=== PATIENT | female | born 1990 | race Caucasian/White ===

== ENCOUNTER → 2017-05-04 | Outpatient (CLI) | payer SELFPAY ==
--- NOTE | 2017-05-09 10:33 | RADIOLOGY REPORT (SQ) ---
EXAM DESCRIPTION: U/S ME8ROLE TRNABD 1GES W/ODOP COMPLETED DATE/TIME: 05/04/2017 1:47 pm REASON FOR STUDY: ENCOUNTER FOR SUPERVISON OF NORMAL FIRST , FIRST TRIMESTER Z34.01 ENCNTR FOR SUPRVSN OF NORMAL FIRST PREG, FIRST TRIMES COMPARISON: None. TECHNIQUE: Transabdominal static and realtime grayscale images acquired of the pelvis. Additional se lected spectral and color Doppler images recorded. All images stored on PACs. bHCG: Not available. LIMITATIONS: Over distended urinary bladder FINDINGS: FETUS: Living intrauterine . EGA: 8 weeks 2 days CYNDI: 12/12/2017 FHR: 149 beats per minute. SUBCHORIONIC BLEED: No SIZE OF BLEED: Not applicable. UTERUS: No masses. No anomalies. Uterus is 11 x 5 x 4 cm in size CERVICAL LENGTH: 2.9 cm Closed. RIGHT ADNEXA: Not visualized due to adnexal bowel gas. LEFT ADNEXA: Not visualized due to adnexal bowel gas FREE FLUID: None. OTHER: No other significant finding. IMPRESSION: LIVING INTRAUTERINE . EGA 8 weeks 2 days Maternal adnexum not visualized due to bowel gas. Trimester of : First - 0 to 13 weeks. TECHNICAL DOCUMENTATION: JOB ID: [id number] [employer] All Rights Reserved
== END ==
LOC: RAD 12:41
PROVIDERS: ATTEND Nurse Practitioner Women's Health
DX: Z34.01 Encounter for supervision of normal first pregnancy, first trimester (principal)
CPT/HCPCS: 76801

== ENCOUNTER → 2017-07-31 | Outpatient (CLI) | payer BC ==
--- NOTE | 2017-07-31 15:01 | RADIOLOGY REPORT (SQ) ---
EXAM DESCRIPTION: U/S OB 14+ TRNABD 1GES W/O DOP COMPLETED DATE/TIME: 07/31/2017 2:11 pm REASON FOR STUDY: ENCOUNTER FOR SUPERVISION OF NORMAL FIRST , 2ND TRIMESTER (Z34.02) Z34.02 ENCNTR FOR SUPRVSN OF NORMAL FIRST PREG, SECOND TRIME COMPARISON: None. TECHNIQUE: Static and Dynamic grayscale imaging performed of gravid uterus using transabdominal appr oach. Additional selected color Doppler and spectral images recorded. All stored on PACS. LIMITATIONS: None. FINDINGS: EGA: 21 weeks 5 days CYNDI: 12/06/2017 EFW: 422 Grams PERCENTILE: Not available. JARRET: 4.4 PLACENTA: Posterior. GRADE: I PRESENTATION: Cephalic. ANATOMY: HEART RATE: 145 beats per minute. FOUR CHAMBER HEART: Visualized. THREE VESSEL CORD: Yes. CORD INSERTION: Visualized. KIDNEYS AND BLADDER: Visualized. Appear normal. STOMACH: Visualized. Appears normal. SPINE: Normal as visualized. BRAIN AND LATERAL VENTRICLES: Visualized. Appear normal. OTHER: No other significant finding. MATERNAL ADNEXA: Maternal ovaries not visualized. CERVICAL LENGTH: 2.6 cm Closed. OTHER: No other significant finding. IMPRESSION: LIVING INTRAUTERINE . ESTIMATED GESTATIONAL AGE 21 weeks 5 days NO VISUALIZED ANOMALIES. Trimester of : Second trimester - 13 weeks 1 day to 27 weeks 6 days. TECHNICAL DOCUMENTATION: JOB ID: [id number] [employer]- All Rights Reserved
== END ==
LOC: RAD 12:33
PROVIDERS: ATTEND Nurse Practitioner Women's Health
DX: Z34.02 Encounter for supervision of normal first pregnancy, second trimester (principal)
CPT/HCPCS: 76805

== ENCOUNTER 2017-12-04 21:24 | Inpatient (IN) | payer BC ==
[2017-12-04 22:08] LABS: HEMATOCRIT 35.4 % (36.0-47.0); HEMOGLOBIN 11.8 g/dL (12.0-15.5); MEAN CORPUSCULAR HEMOGLOBIN 27.8 pg (27.0-33.4); MEAN CORPUSCULAR HGB CONC 33.3 g/dL (32.0-36.0); MEAN CORPUSCULAR VOLUME 83 fl (80-97); PLATELET COUNT 349 10^3/uL (150-450); RED BLOOD COUNT 4.24 10^6/uL (3.72-5.28); RED CELL DISTRIBUTION WIDTH 14.1 % (11.5-14.0); WHITE BLOOD COUNT 14.2 10^3/uL (4.0-10.5)
[2017-12-04 22:17] LABS: APPEARANCE,URINE CLEAR; BILIRUBIN,URINE NEGATIVE (NEGATIVE); COLOR,URINE YELLOW; GLUCOSE, URINE NEGATIVE (NEGATIVE); KETONES,URINE NEGATIVE (NEGATIVE); LEUKOCYTE ESTERASE,URINE NEGATIVE (NEGATIVE); NITRITE,URINE NEGATIVE (NEGATIVE); PROTEIN,URINE NEGATIVE (NEGATIVE); URINE SPECIFIC GRAVITY 1.012; UROBILINOGEN,URINE NEGATIVE mg/dL (<2.0)
[2017-12-04 22:38] LABS: URINE AMPHETAMINES SCREEN NEGATIVE; URINE BARBITURATES SCREEN NEGATIVE; URINE BENZODIAZEPINES SCREEN NEGATIVE; URINE COCAINE SCREEN NEGATIVE; URINE MARIJUANA (THC) SCREEN NEGATIVE; URINE METHADONE SCREEN NEGATIVE; URINE PHENCYCLIDINE SCREEN NEGATIVE
[2017-12-04] MEDS ORDERED: DINOPROSTONE 10 MG VAGINAL INSERT.SR ONE (22:42)
--- NOTE | 2017-12-05 03:49 | Admission Physical ---
Datetime Report Generated by CPN: 12/05/2017 03:49 CURRENT ADMISSION Chief Complaint: Scheduled Induction of Labor Indication for Induction: Polyhydramnios Admit Impression : Term, Intrauterine ; Induction of Labor Admit Plan: Admit to Unit; Initiate Labor Induction Protocol ALLERGIES Medication Allergies: No Medication Allergies: No Known Allergies (12/04/2017) Latex: No Latex Allergies Food Allergies: none Environmental Allergies: none OBSTETRICAL HISTORY EDC: 12/12/2017 00:00 : 1 Para: 0 Term: 0 : 0 SAB: 0 IAB: 0 Ectopic: 0 Livin Cesareans: 0 VBACs: 0 Multiple Births: 0 Gestational Diabetes: No Rh Sensitization: No Incompetent Cervix: No HOOD: No Infertility: No ART Treatment: No Uterine Anomaly: No IUGR: No Hx Previous C/S: No Macrosomia: No Hx Loss/Stillborn: No PIH: No Hx : No Placenta Previa/Abruption: No Depression/PP Depression: No PTL/PROM: No Post Hemorrhage: No Current Procedures: Ultrasound; NST Obstetrical History Comments: G1-present edc 12/12/17 SEE RECORDS Alcohol: No Marijuana : No Cocaine: No Other Illicit Drugs: No Cigarettes: Never Smoker. [id number] MEDICAL HISTORY Diabetes: No Blood Transfusion: No Pulmonary Disease (Asthma, TB): No Breast Disease: No Hypertension: No Skein Bander Surgery: No Heart Disease: No Hosp/Surgery: No Autoimmune Disorder: No Anesthetic Complications: No Kidney Disease: No Abnormal Pap Smear: Yes Neuro/Epilepsy: No Psychiatric Disorders: Yes Other Medical Diseases: No Hepatitis/Liver Disease: No Significant Family History: No Varicosities/Phlebitis: No Trauma/Violence : No Thyroid Dysfunction: No Medical History Comments: PSYCHIATRIC-ANXIETY TAKES ZOLOFT, VISTARIL PRN, ABNORMAL PAP-ASCUS WILL DO COLP AFTER INFECTIOUS HISTORY Gonorrhea: No Genital Herpes: No Chlamydia: No Tuberculosis: No Syphilis: No Hepatitis: No HIV/AIDS Exposure: No Rash or Viral Illness: No HPV: Yes Infectious History Comments: plan for colp after PHYSICAL EXAM General: Normal HEENT: Normal Neurologic: Normal Thyroid: Normal Heart: Normal Lungs: Normal Breast: Normal Back: Normal Abdomen: Normal Genitourinary Exam: Normal Extremities: Normal DTRs: Normal Pelvic Type: Adequate Vital Signs: Reviewed VAGINAL EXAM Dilatation: 1 Effacement: 25 Station: -3 MEMBRANES Pooling: Negative Membranes: Intact FETUS A EGA: 39.0 Monitoring: External US FHR- Baseline: 130 Variability: Moderate 6-25bpm Accelerations: 15X15 Decelerations: None FHR Category: Category I Estimated Weight (gm): 4000 Presentation: Vertex PLANS FOR LABOR AND DELIVERY Labor and Delivery: None Pain Management: None Other Pain Management Plans: undecided Feeding Preference: Breast Benefit of Breast Feed Discussed: Yes Circumcision: Yes INFORMED CONSENT Signature: with User ID: [email or web address]
[2017-12-05] MEDS ORDERED: DINOPROSTONE 10 MG VAGINAL INSERT.SR PV PRN (05:57)
[2017-12-05] MEDS ORDERED: RINGERS SOLUTION,LACTATED 300 ML IV ONE ×2 (05:57→09:30)
[2017-12-05] MEDS ORDERED: RINGERS SOLUTION,LACTATED 1,000 ML IV PRN ×3 (05:57→16:26)
[2017-12-05] MEDS ORDERED: ACETAMINOPHEN 325 MG TABLET PO PRN ×2 (05:58→16:26)
[2017-12-05] MEDS ORDERED: MAG HYDROX/AL HYDROX/SIMETH SUSP 30 ML UDCUP PO PRN (05:58)
[2017-12-05] MEDS ORDERED: ACETAMINOPHEN 325 MG TABLET ONE (06:03)
[2017-12-05] MEDS ORDERED: OXYTOCIN/NORMAL SALINE 20 UNIT/1,000 ML RTUINJ ONE ×3 (09:29→19:28)
--- NOTE | 2017-12-05 09:29 | L&D Progress Notes ---
PROGRESS NOTES Datetime Report Generated by CPN: 12/05/2017 09:29 PROGRESS NOTE Impression: Normal Progression of Labor Procedures: Sterile Vag Exam Procedures- Other: placement of van balloon Plan: Induction Vital Signs : Reviewed Comment: IOL for polyhydramnios. van balloon placed without difficulty. P:start pitocin, AROM when FB out, anticipate VAGINAL EXAM Dilatation: 3 Dilatation: 1 Effacement: 80 Effacement: 25 Station: -1 Station: -3 Contractions: irreg MEMBRANES Pooling: Negative Membranes: Intact FETUS A FHR - Baseline: 120 Monitoring: External US Variability: Moderate 6-25bpm Accelerations: 15X15 Decelerations: None : 39.0 : 39.0 Estimated Weight (gm): 3300 Estimated Weight (gm): 4000 Presentation: Vertex SIGNATURE SIGNATURE: [id number];[id number] SIGNATURE: [id number] Assignment: Dianne Mcdaniels MD Signature: with User ID: [email or web address] : with User ID: [email or web address]
[2017-12-05] MEDS ORDERED: OXYTOCIN/NORMAL SALINE 20 UNIT/1,000 ML RTUINJ IV PRN ×2 (09:30→16:26)
[2017-12-05] MEDS ORDERED: BUPIVACAINE HCL 0.25 % INJ/PF (2.5 MG/1 ML) 30 ML VIAL ONE (10:03)
[2017-12-05] MEDS ORDERED: EPHEDRINE SULFATE INJ 50 MG/1 ML AMPULE ONE ×2 (10:03→16:32)
[2017-12-05] MEDS ORDERED: FENTANYL/BUPIVACAINE/NS/PF 200 MCG/100 ML RTUINJ EPI ONE (10:03)
--- NOTE | 2017-12-05 13:31 | L&D Progress Notes ---
PROGRESS NOTES Datetime Report Generated by CPN: 12/05/2017 13:30 PROGRESS NOTE Impression: Reassuring Heart Rate Procedures: Sterile Vag Exam Plan Other: notify MD Informed Consent Obtained: Induction of Labor Vital Signs : Reviewed; Within Normal Limits Comment: variable and prolonged decels resolve with position changes and IVF bolus. Dr Mcdaniels notified. ptiocin at 14 mu/min. continue current plan of care. VAGINAL EXAM Contractions: q2-4 mins MEMBRANES Membranes: Ruptured Amniotic Fluid Color: Clear FETUS A FHR - Baseline: 140 Monitoring: External US Variability: Moderate 6-25bpm Accelerations: 15X15 Decelerations: Early; Variable; Prolonged FHR Category: Category II : 39.0 FETUS C SIGNATURE: [id number];[id number] Assignment: Dianne Mcdaniels MD Signature: with User ID: [email or web address] : with User ID: [email or web address]
[2017-12-05] MEDS ORDERED: GLYCOPYRROLATE INJ 0.4 MG/2 ML VIAL ONE (15:48)
--- NOTE | 2017-12-05 15:53 | L&D Progress Notes ---
PROGRESS NOTES Datetime Report Generated by CPN: 12/05/2017 15:52 PROGRESS NOTE Impression: Arrest of Dilatation/Descent; Reassuring Heart Rate Procedures: Intrauterine Pressure Catheter; Scalp Electrode Plan: Continue Present Management; Induction Vital Signs : Reviewed; Within Normal Limits Comment: contractions irreg on external monitor and no cervical change in 6 hours. Internal monitors placed. pitocin at 20mu/min. continue pitocin IOL, continue to monitor. VAGINAL EXAM Dilatation: 5 Effacement: 80 Station: -2 Contractions: IUPC placed MEMBRANES Amniotic Fluid Color: Clear FETUS A FHR - Baseline: 140 Variability: Moderate 6-25bpm Accelerations: 15X15 Decelerations: Early FHR Category: Category I : 39.0 FETUS C SIGNATURE: [id number];[id number] Assignment: Dianne Mcdaniels MD Signature: with User ID: [email or web address] : with User ID: [email or web address]
[2017-12-05] MEDS ORDERED: CITRIC ACID/SODIUM CITRATE ORAL SOLN 15 ML UDCUP ONE (16:17)
[2017-12-05] MEDS ORDERED: CEFAZOLIN 2 GM/D5W RTU 2 GM/50 ML RTUPB IV ONE (16:17)
[2017-12-05] MEDS ORDERED: LIDOCAINE 2% INJ-PF (20 MG/ML) 10 ML AMPUL ONE (16:20)
[2017-12-05] MEDS ORDERED: OXYCODONE-ACETAMINOPHEN 5-325 MG TABLET PO PRN (16:26)
[2017-12-05] MEDS ORDERED: DIPH/PERTUSS(ACELL)/TETANUS VAC/PF 0.5 ML SYR (>=10YO) IM PRN (16:26)
[2017-12-05] MEDS ORDERED: ACETAMINOPHEN 100 ML IV PRN (16:26)
[2017-12-05] MEDS ORDERED: SIMETHICONE 80 MG TAB.CHEW PO PRN (16:26)
[2017-12-05] MEDS ORDERED: MEASLES,MUMPS&RUBELLA VACC/PF 0.5 ML VIAL SUBCUT PRN (16:26)
[2017-12-05] MEDS ORDERED: PROMETHAZINE HCL INJ 25 MG/1 ML VIAL IV PRN ×2 (16:26→16:59)
[2017-12-05] MEDS ORDERED: MIDAZOLAM 2 MG/2 ML INJ ONE (16:32)
[2017-12-05] MEDS ORDERED: OXYTOCIN 10 UNIT/ML VIAL ONE (16:32)
[2017-12-05] MEDS ORDERED: FENTANYL CITRATE INJ/PF 100 MCG/2 ML AMPUL ONE (16:32)
[2017-12-05] MEDS ORDERED: ONDANSETRON HCL INJ/PF 4 MG/2 ML SDV ONE (16:33)
[2017-12-05] MEDS ORDERED: CEFAZOLIN 2 GM/D5W RTU 2 GM/50 ML RTUPB IV SCH (16:45)
[2017-12-05] MEDS ORDERED: FENTANYL CITRATE INJ/PF 100 MCG/2 ML AMPUL IV PRN ×3 (16:59)
[2017-12-05] MEDS ORDERED: DIPHENHYDRAMINE HCL 50 MG/ML VIAL IV PRN (16:59)
[2017-12-05] MEDS ORDERED: MEPERIDINE HCL/PF INJ 25 MG/1 ML DISP.SYRIN IV PRN (16:59)
--- NOTE | 2017-12-05 17:47 | Operative Report ---
Operative Report DATE OF SURGERY: 12/05/17 PREOPERATIVE DIAGNOSIS: Cephalopelvic disproportion POSTOPERATIVE DIAGNOSIS: Same OPERATION: Primary via low transverse uterine incision SURGEON: GOLDIE DUKE ANESTHESIA: Epidural TISSUE REMOVED OR ALTERED: Placenta COMPLICATIONS: None ESTIMATED BLOOD LOSS: 250 cc INTRAOPERATIVE FINDINGS: Viable male directly OP Apgars 4 and 7 8 lbs. 5 oz. PROCEDURE: Patient was taken to the OR and placed in supine position after her spinal anesthesia. She is prepared and draped in sterile fashion. Martinez was placed for drainage of the bladder. Low transverse incision was made and carried down the level of the fascia. The fascial incision was made with knife and extended bilaterally with curved Logan scissors. The fascia was off the rectus muscles using sharp and blunt dissection. The rectus muscles are in the midline. The peritoneum was entered without incident. Bladder blade was placed and the uterine segment was identified. A low transverse incision was made creating a bladder flap. Bladder blade was placed low transverse uterine incision was made with the csafe knife and extended with fingertips. The baby was delivered with some fundal pressure. Mouth and nose were suctioned free. The cord is doubly clamped and cut. Baby is passed off to the radiation physicist in attendance. The placenta was manually extracted with trailing membranes. The uterus was externalized wrapped in a moist lap sponge. Uterine contents wiped free. Uterus was closed with a running locking layer of 0 chromic suture using the second layer to imbricate the first completing a double layer closure of the uterus. The serosa was closed with a running 2-0 chromic stitch. The pelvis was irrigated and suctioned free of fluid the uterus was replaced in the abdomen. The abdominal wall peritoneum was closed with running 2-0 chromic stitch. Fascia was closed with a running 0 Vicryl in 2 segments. Keshav's layer was brought together with 0 plain gut stitch and the skin was closed with running subcuticular 4-0 undyed Vicryl stitch. The wound was dressed mother and baby did well.
[2017-12-05] MEDS ORDERED: KETOROLAC TROMETHAMINE INJ/PF 30 MG/1 ML SDV IV SCH (18:00)
[2017-12-05] MEDS ORDERED: CEFAZOLIN 1 GM/D5W RTU 50 ML IV SCH (18:00)
[2017-12-05] MEDS ORDERED: MEPERIDINE HCL/PF INJ 25 MG/1 ML DISP.SYRIN ONE (18:14)
--- NOTE | 2017-12-05 18:21 | Delivery Summary ---
Del Sum A-C Datetime Report Generated by CPN: 12/05/2017 18:20 DELIVERY PERSONNEL DELIVERY PERSONNEL: [id number] Delivery Doctor:: Dianne Mcdaniels MD Anesthesiologist:: Hoang Yung MD CNA LTC:: Lj Velásquez CRNA Labor and Delivery Nurse:: MARIELOS Valencia Labor and Delivery Nurse:: Katelyn Smith RN Sheet Metal Duct Worker Supervisor:: MARIELOS Valencia Nurse Practitioner:: LIVIA Richey Nursery Nurse:: tSacy Osborn RN Student Observers:: x[employer]rina Parts Sales Associate/PENSION AGENT: Hiro Domingo, GUILLE Parts Sales Associate/PENSION AGENT: Jackie Flores, ST MATERNAL INFORMATION Delivery Anesthesia: Epidural Medications After Delivery: Other-Please Comment Meds After Delivery Comment: see anesthesia record Estimated Blood Loss (ml): 500 Maternal Complications: None LABOR SUMMARY EDC: 12/12/2017 00:00 No. Babies in Womb: 1 Attempted: No Labor Anesthesia: Epidural LABOR INFORMATION Reason for Induction: Polyhydramnios Cervical Ripening Agents: Cervidil Oxytocin: Induction Group B Beta Strep: NEGATIVE Steroids Given: None Reason Steroids Not Administered: Not Applicable MEMBRANES Membranes Rupture Method: Artificial Rupture of Membranes: 12/05/2017 09:43 Length of Rupture (hr): 7.32 Amniotic Fluid Color: Clear Amniotic Fluid Amount: Large Amniotic Fluid Odor: None STAGES OF LABOR Stage 3 hr: 0 Stage 3 min: 1 VAGINAL DELIVERY Episiotomy: None Laceration #1: None Laceration Extension #1: N/A Laceration Repair: Not Applicable Sponge Count Correct: N/A CSECTION DELIVERY Primary Indication: Arrest of Descent CSection Urgency: Non-Scheduled CSection Incidence: Primary Labor: Labor Elective: Nonelective CSection Incision: Lower Uterine Transverse BABY A INFORMATION Infant Delivery Date/Time: 12/05/2017 17:02 Method of Delivery: Born in Route : No : N/A Forceps: N/A Vacuum Extraction: N/A Shoulder Dystocia : No PRESENTATION/POSITION BABY A Presentation: Cephalic Cephalic Presentation: Vertex Vertex Position: Right Occipital Posterior Breech Presentation: N/A PLACENTA INFORMATION BABY A Placenta Delivery Time : 12/05/2017 17:03 Placenta Method of Delivery: Manual Removal Placenta Status: Delivered SCORES BABY A Heart Rate 1 min: Slow, Below 100 bpm Resp Effort 1 min: Slow, Irregular Reflex Irritability 1 min: Grimace Muscle Tone 1 min: Some Flexion of Extremities Color 1 min: Blue/Pale Resuscitation Effort 1 min: Tactile Stimulation; Oxygen; PPV/NCPAP SCORE 1 MIN: 4 Heart Rate 5 min: >100 bpm Resp Effort 5 min: Good Cry Reflex Irritability 5 min: Grimace Muscle Tone 5 min: Some Flexion of Extremities Color 5 min: Body [place], Extremities Blue Resuscitation Effort 5 min: Tactile Stimulation; Oxygen SCORE 5 MIN: 7 Resuscitation Effort 10 min: N/A INFORMATION BABY A Gestational Age at Delivery: 39.0 Gestational Status: Full Term- 39- 40.6 Weeks Infant Outcome : Liveborn Infant Condition : Stable Infant Sex: Male WEIGHT/LENGTH BABY A Birthweight (gm): 3755 Infant Weight (lb): 8 Infant Weight (oz): 4 Length (in): 20.50 Length (cm): 52.07 CORD INFORMATION BABY A No. Cord Vessels: 3 Nuchal Cord : N/A Cord Blood Taken: Yes-For Storage (Mom's Blood type +) Suction: Mouth; Nose ASSESSMENT BABY A Infant Complications: Multiple Late Decels; Multiple Variable Decels Physical Findings at Delivery: Within Normal Limits Infant Respirations: Appears Normal Skin to Skin: No Skin to Skin Time (min): in pacu Requirements Engineer/ALS Called : Yes Care By: D Matters JUKE BOX MECHANIC Transferred To: Nursery BABY B INFORMATION : N/A SIGNATURES : I was personally available for consultation and serving as supervising physician for the MLP.
[2017-12-05] MEDS ORDERED: KETOROLAC TROMETHAMINE INJ/PF 30 MG/1 ML SDV ONE (18:30)
[2017-12-05] MEDS ORDERED: HYDROMORPHONE HCL INJ/PF 2 MG/ML AMPULE ONE (19:02)
[2017-12-05] MEDS: HYDROMORPHONE HCL INJ/PF 2 MG/ML AMPULE IV PRN (19:05)
[2017-12-05] MEDS: DOCUSATE SODIUM 100 MG CAPSULE PO SCH (20:31)
[2017-12-05] MEDS: IBUPROFEN 800 MG TABLET PO SCH (20:31)
[2017-12-05] MEDS ORDERED: HYDROXYZINE PAMOATE 25 MG CAPSULE PO PRN ×2 (21:49→23:00)
[2017-12-05] MEDS: ZOLPIDEM TARTRATE 5 MG TABLET PO SCH (22:30)
[2017-12-05] MEDS: OXYCODONE-ACETAMINOPHEN 5-325 MG TABLET PO PRN (22:41)
[2017-12-06] MEDS: HYDROMORPHONE HCL INJ/PF 2 MG/ML AMPULE IV PRN (00:43)
[2017-12-06] MEDS: IBUPROFEN 800 MG TABLET PO SCH ×5 (00:43→23:04)
[2017-12-06] MEDS: OXYCODONE-ACETAMINOPHEN 5-325 MG TABLET PO PRN ×2 (05:30→21:26)
[2017-12-06 07:40] LABS: HEMATOCRIT 28.5 % (36.0-47.0); MEAN CORPUSCULAR HEMOGLOBIN 28.2 pg (27.0-33.4); MEAN CORPUSCULAR HGB CONC 33.1 g/dL (32.0-36.0); MEAN CORPUSCULAR VOLUME 85 fl (80-97); PLATELET COUNT 253 10^3/uL (150-450); RED BLOOD COUNT 3.35 10^6/uL (3.72-5.28); RED CELL DISTRIBUTION WIDTH 14.2 % (11.5-14.0); WHITE BLOOD COUNT 19.4 10^3/uL (4.0-10.5)
[2017-12-06 07:44] LABS: HEMOGLOBIN 9.4 g/dL (12.0-15.5)
--- NOTE | 2017-12-06 09:45 | PDOC PROGRESS REPORT ---
Subjective-OB Progress Note for:: 12/06/17 Physical Exam (OB) Vital Signs: Temp Pulse Resp BP Pulse Ox 98.1 F 72 20 120/75 97 12/06/17 08:21 12/06/17 08:21 12/06/17 08:21 12/06/17 08:21 12/06/17 08:21 Intake & Output 12/05/17 12/06/17 12/07/17 06:59 06:59 06:59 Intake Total 500 Output Total 1200 150 Balance -700 -150 Weight 105.1 kg - PIH/Pre-Eclampsia DTR's: 2 + Clonus: Negative Headache: Absent Epigastric Pain: No Visual Changes: No - Dressing Removed: No Incision: Dressing - Lochia Lochia Amount: Scant < 10 ml Lochia Color: Rubra/Red - Abdomen Description: Tender, Soft Hernia Present: No Bowel Sounds: Normoactive Flatus Presence: Absent Stool: No Fundal Description: Firm, Midline Fundal Height: u/u - u/2 Objective-Diagnostic Laboratory: 12/06/17 06:23 12/06/17 06:23 WBC 19.4 H RBC 3.35 L Hgb 9.4 L D Hct 28.5 L MCV 85 MCH 28.2 MCHC 33.1 RDW 14.2 H Plt Count 253
[2017-12-06] MEDS ORDERED: (PENDING PHARMACY ID) (Metformin Hcl [Metformin Hcl Er] 1,000 MG) PO SCH (10:00)
[2017-12-06] MEDS: DOCUSATE SODIUM 100 MG CAPSULE PO SCH ×2 (10:34→17:02)
[2017-12-06] MEDS: SERTRALINE HCL 50 MG TABLET PO SCH (10:34)
[2017-12-06] MEDS: METFORMIN HCL 500 MG TABLET PO SCH ×2 (10:34→17:01)
[2017-12-06] MEDS: PRENATAL VITAMIN W DHA CAPSULE PO SCH (10:35)
[2017-12-06] MEDS: ZOLPIDEM TARTRATE 5 MG TABLET PO SCH (22:59)
[2017-12-07] MEDS: OXYCODONE-ACETAMINOPHEN 5-325 MG TABLET PO PRN (03:33)
[2017-12-07] MEDS: IBUPROFEN 800 MG TABLET PO SCH ×2 (05:26→11:57)
[2017-12-07 06:49] LABS: MEAN CORPUSCULAR HEMOGLOBIN 27.5 pg (27.0-33.4); MEAN CORPUSCULAR HGB CONC 32.3 g/dL (32.0-36.0); MEAN CORPUSCULAR VOLUME 85 fl (80-97); PLATELET COUNT 275 10^3/uL (150-450); RED BLOOD COUNT 3.29 10^6/uL (3.72-5.28); RED CELL DISTRIBUTION WIDTH 14.8 % (11.5-14.0); WHITE BLOOD COUNT 17.9 10^3/uL (4.0-10.5)
[2017-12-07] MEDS: PRENATAL VITAMIN W DHA CAPSULE PO SCH (09:09)
[2017-12-07] MEDS: DOCUSATE SODIUM 100 MG CAPSULE PO SCH (09:09)
[2017-12-07] MEDS: METFORMIN HCL 500 MG TABLET PO SCH (09:09)
[2017-12-07] MEDS: SERTRALINE HCL 50 MG TABLET PO SCH (09:09)
--- NOTE | 2017-12-07 10:43 | PDOC DISCHARGE SUMMARY ---
Final Diagnosis Discharge Date: 12/07/17 - Final Diagnosis (1) Delivery by emergency caesarean section Is this a current diagnosis for this admission?: Yes (2) History of PCOS Is this a current diagnosis for this admission?: Yes (3) Polyhydramnios affecting Is this a current diagnosis for this admission?: Yes Discharge Data - Discharge Medication Prescriptions: Ferrous Sulfate [Albafort] 325 mg PO BID #60 tablet Ibuprofen [Motrin 800 mg Tablet] 800 mg PO Q8HP PRN #90 tablet PRN Reason: Oxycodone HCl/Acetaminophen [Percocet 5-325 mg Tablet] 1 tab PO Q4HP PRN #30 tablet PRN Reason: Home Medications: Hydroxyzine Pamoate [Vistaril 25 mg Capsule] 25 mg PO DAILY PRN 12/04/17 Metformin HCl [Metformin HCl ER] 1,000 mg PO DAILY 12/04/17 Sertraline HCl [Zoloft 50 mg Tablet] 100 mg PO DAILY 12/04/17 Ferrous Sulfate [Albafort] 325 mg PO BID #60 tablet 12/07/17 Ibuprofen [Motrin 800 mg Tablet] 800 mg PO Q8HP PRN #90 tablet 12/07/17 Oxycodone HCl/Acetaminophen [Percocet 5-325 mg Tablet] 1 tab PO Q4HP PRN #30 tablet 12/07/17 Vit/Dha [ Multi + Dha Capsule] 1 cap PO DAILY capsule Reason(s) for Admission: Ceasarean Section-Primary - failure to progress Procedures: NST Intrapartum Procedure(s): : Low Cervical, Transverse - Diagnosis Test Laboratory: Temp Pulse Resp BP Pulse Ox 98.5 F 81 14 129/82 H 97 12/07/17 08:41 12/07/17 08:41 12/07/17 08:41 12/07/17 08:41 12/07/17 08:41 12/04/17 12/04/17 12/06/17 21:50 21:50 06:23 RBC 4.24 3.35 L Hgb 11.8 L 9.4 L D Hct 35.4 L 28.5 L Urine Opiates Screen NEGATIVE 12/07/17 06:38 RBC 3.29 L Hgb 9.0 L Hct 28.0 L Urine Opiates Screen - Discharge information/Instructions Discharge Activity: Balance Activity w/Rest, Pelvic Rest, No tub bath Discharge Diet: Regular Disposition: HOME, SELF-CARE Follow up with: [facility] in: 1, Weeks
[2017-12-07 11:25] VITALS: BP 129/82
== END 2017-12-07 13:24 | disposition home or self-care (01) | DRG 766 ==
LOC: LR 21:24 → 2S 12-05 20:10
PROVIDERS: ADMIT Obstetrics & Gynecology; ATTEND Obstetrics & Gynecology
PROC: 10D00Z1 Extraction of Products of Conception, Low, Open Approach (ICD-10-PCS; principal; 2017-12-05)
PROC: 3E0234Z Introduction of Serum, Toxoid and Vaccine into Muscle, Percutaneous Approach (ICD-10-PCS; 2017-12-07)
DX: O40.3XX0 Polyhydramnios, third trimester, not applicable or unspecified (principal); O76 Abnormality in fetal heart rate and rhythm complicating labor and delivery; O33.9 Maternal care for disproportion, unspecified; O62.1 Secondary uterine inertia; O99.344 Other mental disorders complicating childbirth; F41.9 Anxiety disorder, unspecified; Z3A.39 39 weeks gestation of pregnancy; Z37.0 Single live birth; Z23 Encounter for immunization; E28.2 Polycystic ovarian syndrome
CPT/HCPCS: 1961; 36415; 80307; 81005; 85027; 86592; 86850; 86900; 86901; 90715; 94799; J0690; J1170; J1885; J2175; J2250; J2405; J2590; J3010; J3490; J7120

== ENCOUNTER → 2018-05-26 | Outpatient (CLI) | payer BC, MEDICAID ==
[2018-05-29 07:28] LABS: EPSTEIN BARR EARLY AG IGG AB <9.0 U/mL (0.0-8.9); EPSTEIN BARR VCA IGM AB <36.0 U/mL (0.0-35.9)
== END ==
LOC: OD 10:01
PROVIDERS: ATTEND Student in an Organized Health Care Education/Training Program
DX: R10.30 Lower abdominal pain, unspecified (principal); R19.5 Other fecal abnormalities; M25.50 Pain in unspecified joint; R53.83 Other fatigue
CPT/HCPCS: 36415; 83918; 86256; 86663; 86664; 86665

== ENCOUNTER → 2018-06-08 | Outpatient (CLI) | payer BC, MEDICAID ==
--- NOTE | 2018-06-08 11:58 | RADIOLOGY REPORT (SQ) ---
EXAM DESCRIPTION: U/S NON-OB PELVIS LTD W/O DOP COMPLETED DATE/TIME: 06/08/2018 11:15 am REASON FOR STUDY: UNSPEC DISTURBANCE OF SKIN SENSATION COMPARISON: None. TECHNIQUE: Dynamic and static grayscale images acquired of the localized site of clinical concern an d recorded on PACS. Additional selected color Doppler and spectral images recorded. SITE OF CONCERN: Lower abdominal wall at site of previous . LIMITATIONS: None. FINDINGS: There is a hypoechoic region in the deep soft tissues, located anterior to the bladder at approximately 3 cm from the skin surface. This measures 1.6 x 6.2 x 10.6 cm. IMPRESSION: HYPOECHOIC REGION IN THE DEEP SOFT TISSUES. THIS MAY REPRESENT A POSTOPERATIVE SOFT TIS ITZEL FLUID COLLECTION. CT OF THE PELVIS MAY PROVIDE MORE SPECIFIC ANATOMIC INFORMATION. TECHNICAL DOCUMENTATION: JOB ID: [id number] [employer]- All Rights Reserved Reading location - IP/workstation name: [email or web address]
--- NOTE | 2018-06-08 12:02 | RADIOLOGY REPORT (SQ) ---
EXAM DESCRIPTION: U/S THYROID/SFT TISS HD NECK COMPLETED DATE/TIME: 06/08/2018 11:10 am REASON FOR STUDY: THYROMEGALY COMPARISON: None. TECHNIQUE: Dynamic and static coello-scale images acquired of the thyroid gland. Selected additional c olor/power Doppler images recorded. All images stored to PACS. LIMITATIONS: None. FINDINGS: RIGHT LOBE: Normal size. Heterogeneous echotexture. Hypoechoic nodules measuring 9 mm an d 7 mm. LEFT LOBE: Normal size. Heterogeneous echotexture. Hypoechoic nodules measuring 6 mm and 8 mm. ISTHMUS: Normal size. Heterogeneous echotexture. No cystic or solid masses. OTHER: No other significant finding. IMPRESSION: HETEROGENOUS APPEARANCE OF THE THYROID WITH SMALL SUBCENTIMETER HYPOECHOIC NODULES IN KEIRY TH LOBES. MOST LIKELY REPRESENTS MULTINODULAR GOITER. TECHNICAL DOCUMENTATION: JOB ID: [id number] [employer]- All Rights Reserved Reading location - IP/workstation name: [email or web address]
== END ==
LOC: RAD 09:12
PROVIDERS: ATTEND Student in an Organized Health Care Education/Training Program
DX: E01.0 Iodine-deficiency related diffuse (endemic) goiter (principal); R20.9 Unspecified disturbances of skin sensation
CPT/HCPCS: 76536; 76857

== ENCOUNTER 2018-12-11 18:24 | Emergency (ER) | payer BC ==
[2018-12-11 18:34] VITALS: BP 152/94
[2018-12-11] MEDS ORDERED: OXYCODONE-ACETAMINOPHEN 5-325 MG TABLET PO ONE (18:57)
[2018-12-11] MEDS ORDERED: DIPH/PERTUSS(ACELL)/TETANUS VAC/PF 0.5 ML SYR (>=10YO) IM ONE (18:57)
[2018-12-11] MEDS ORDERED: NAPROXEN 250 MG TABLET PO ONE (18:57)
--- NOTE | 2018-12-11 18:58 | ER Document Report ---
ED Medical Screen (RME) - General Chief Complaint: Dog Bite Stated Complaint: DOG BITE Time Seen by Provider: 12/11/18 18:48 Primary Care Provider: MARY KNOX DO [Primary Care Provider] - Follow up as needed Notes: Patient is a 27-year-old female that presents to the emergency department for chief complaint of multiple dog bites. Patient was breaking up a fight between 2 of her dogs, they are up-to-date with rabies vaccinations, she is not sure when she had her last tetanus, she had multiple bites to her hands and wrists. ROS: Other than noted above, the 12 point review of systems was reviewed with the patient and were negative, all pertinent findings are included in the HPI. PHYSICAL EXAMINATION: Vital signs reviewed. GENERAL: Patient appears uncomfortable. HEAD: Atraumatic, normocephalic. EYES: Pupils equal round extraocular movements intact, conjunctiva are normal. ENT: Nares patent NECK: Normal range of motion CV: Heart regular rate and rhythm LUNGS: No respiratory distress Musculoskeletal: Tenderness to palpation to the wrists and hands bilaterally. NEUROLOGICAL: Normal speech PSYCH: Normal mood, normal affect. MDM: Patient seen and examined for rapid initial assessment. Vital signs reviewed. A comprehensive ED assessment and evaluation of the patient, analysis of test results and completion of the medical decision making process will be conducted by additional ED providers. *Note is created using voice recognition software and may contain spelling, syntax or grammatical errors. TRAVEL OUTSIDE OF THE [place] IN LAST 30 DAYS: No - Related Data Allergies/Adverse Reactions: No Known Allergies Allergy (Unverified 12/04/17 23:09) Past Medical History - Social History Chew tobacco use (# tins/day): No Frequency of alcohol use: Occasional Drug Abuse: None Renal/ Medical History: Denies: Hx Peritoneal Dialysis Past Surgical History: Reports: Hx Section - Immunizations History of Influenza Vaccine for 06/2017 - 11/2017 Season: Refused Physical Exam - Vital signs Vitals: Temp Pulse Resp BP Pulse Ox 99.5 F 82 18 152/94 H 97 12/11/18 18:32 12/11/18 18:32 12/11/18 18:32 12/11/18 18:32 12/11/18 18:32 Course - Vital Signs Vital signs: Temp Pulse Resp BP Pulse Ox 99.5 F 82 18 152/94 H 97 12/11/18 18:32 12/11/18 18:32 12/11/18 18:32 12/11/18 18:32 12/11/18 18:32 Doctor's Discharge - Discharge Referrals: MARY KNOX, [Primary Care Provider] - Follow up as needed
--- NOTE | 2018-12-11 19:42 | RADIOLOGY REPORT (SQ) ---
EXAM DESCRIPTION: HAND LEFT 3 VIEWS COMPLETED DATE/TIME: 12/11/2018 7:14 pm REASON FOR STUDY: left hand pain, dog bites COMPARISON: None of veil EXAM PARAMETERS: NUMBER OF VIEWS: Three views. TECHNIQUE: AP, lateral and oblique radiographic images acquired of the left hand. LIMITATIONS: Jewelry obscures a portion partial phalanx of the ring finger. FINDINGS: MINERALIZATION: Normal. BONES: No acute fracture or dislocation. No worrisome bone lesions. JOINTS: No effusions. SOFT TISSUES: No radiopaque foreign body. No subcutaneous gas. OTHER: No other significant finding. IMPRESSION: NEGATIVE STUDY OF THE LEFT HAND. NO RADIOGRAPHIC EVIDENCE OF ACUTE INJURY. TECHNICAL DOCUMENTATION: JOB ID: [id number] [employer]- All Rights Reserved Reading location - IP/workstation name: [email or web address]
--- NOTE | 2018-12-11 19:43 | RADIOLOGY REPORT (SQ) ---
EXAM DESCRIPTION: WRIST RIGHT 3 VIEWS COMPLETED DATE/TIME: 12/11/2018 7:14 pm REASON FOR STUDY: dog bite COMPARISON: None. NUMBER OF VIEWS: Three views. TECHNIQUE: AP, lateral, and oblique radiographic images acquired of the right wrist. LIMITATIONS: None. FINDINGS: MINERALIZATION: Normal. BONES: No acute fracture or dislocation. No worrisome bone lesions. Normal alignment. SOFT TISSUES: No radiopaque foreign body. No subcutaneous gas. OTHER: No other significant finding. IMPRESSION: NEGATIVE STUDY OF THE RIGHT WRIST. NO RADIOGRAPHIC EVIDENCE OF ACUTE INJURY. TECHNICAL DOCUMENTATION: JOB ID: [id number] [employer]- All Rights Reserved Reading location - IP/workstation name: [email or web address]
[2018-12-11] MEDS ORDERED: AMOXICILLIN TR/POT CLAVULANATE 500-125 MG TAB PO ONE (22:19)
[2018-12-11] MEDS ORDERED: HYDROCODONE/ACETAMINOPHEN 5-325 MG (6 TAB/ER DISP) PO PRN (22:22)
[2018-12-11] MEDS ORDERED: ONDANSETRON ODT 4 MG TAB (6 TAB/ER DISP) PO PRN (22:22)
--- NOTE | 2018-12-11 22:23 | ER Document Report ---
ED Animal Bite - General Chief Complaint: Dog Bite Stated Complaint: DOG BITE Time Seen by Provider: 12/11/18 18:48 Primary Care Provider: MARY KNOX DO [Primary Care Provider] - Follow up as needed Notes: Patient is a 27-year-old female that presents to the emergency department for chief complaint of multiple dog bites. Patient was breaking up a fight between 2 of her dogs, they are up-to-date with rabies vaccinations, she is not sure when she had her last tetanus, she had multiple bites to her hands and wrists. no other complaints. TRAVEL OUTSIDE OF THE [place] IN LAST 30 DAYS: No - Related Data Allergies/Adverse Reactions: No Known Allergies Allergy (Unverified 12/04/17 23:09) Past Medical History - Social History Smoking Status: Never Smoker Chew tobacco use (# tins/day): No Frequency of alcohol use: Occasional Drug Abuse: None Family History: None Patient has suicidal ideation: No Patient has homicidal ideation: No Renal/ Medical History: Denies: Hx Peritoneal Dialysis Past Surgical History: Reports: Hx Section Review of Systems - Review of Systems Constitutional: No symptoms reported EENT: No symptoms reported Cardiovascular: No symptoms reported Respiratory: No symptoms reported Gastrointestinal: No symptoms reported Genitourinary: No symptoms reported Female Genitourinary: No symptoms reported Musculoskeletal: No symptoms reported Skin: See HPI Hematologic/Lymphatic: No symptoms reported Neurological/Psychological: No symptoms reported Physical Exam - Vital signs Vitals: Temp Pulse Resp BP Pulse Ox 99.5 F 82 18 152/94 H 97 12/11/18 18:32 12/11/18 18:32 12/11/18 18:32 12/11/18 18:32 12/11/18 18:32 - Notes Notes: PHYSICAL EXAMINATION: Reviewed vital signs and charting by RN GENERAL: Alert, interacts well. No acute distress. HEAD: Normocephalic, atraumatic. EYES: Pupils equal, round. Extraocular movements intact. ENT: Oral mucosa moist, tongue midline. EXTREMITIES: Moves all 4 extremities spontaneously. Mild edema dorsal aspect of right wrist on the ulnar side. Edema of the dorsal aspect of the left hand., No cyanosis PSYCH: Normal affect, normal mood. SKIN: Warm, dry, normal turgor. Multiple lacerations. There are 2 on the volar aspect of the distal right upper extremity both approximately 1 cm in length, one on the dorsal aspect over the ulnar head. There is a 1 cm irregular laceration on the left palm in the crease and a 2 cm linear laceration on the dorsal aspect of the left hand just proximal to the third and fourth digits all wounds are actively oozing. Course - Re-evaluation Re-evalutation: 12/11/18 22:28 Patient presents with multiple dog bites. Dogs are vaccinated have rabies vaccinations. Wounds were all copiously irrigated. The lacerations on her right hand will be left open. Lacerations on her left hand were closed on the palm and on the back of the hand with a single suture that was loosely approximated because they were gaping. Patient was given strict instructions on monitoring for infection and strict return precautions. She will receive a dose of Augmentin here in the emergency department and will be given a 5-day course of Augmentin 875/125 twice daily for 5 days for prophylaxis. All wounds were dressed and she is stable for discharge. - Vital Signs Vital signs: Temp Pulse Resp BP Pulse Ox 99.5 F 82 18 152/94 H 97 12/11/18 18:32 12/11/18 18:32 12/11/18 18:32 12/11/18 18:32 12/11/18 18:32 Procedures - Laceration/Wound Repair Left Hand Wound length (cm): 4 Wound's Depth, Shape: Superficial Laceration pre-procedure: Sterile PPE donned Anesthetic type: 1% Lidocaine Wound explored: Clean Irrigated w/ Saline (mLs): 1,000 Wound Debrided: Minimal Wound Repaired With: Sutures Suture Size/Type: 5:0, Ethilon Post-procedure wound care: Sterile dressing applied Post-procedure NV exam normal: Yes Complications: No Discharge - Discharge Clinical Impression: Dog bite Qualifiers: Encounter type: initial encounter Qualified Code(s): W54.0XXA - Bitten by dog, initial encounter Condition: Good Disposition: HOME, SELF-CARE Additional Instructions: Please monitor very closely for any signs of infection from your dog bite including spreading redness from the area, pus from the wound, or worsening pain. Clean the area twice daily with soap and water and then apply topical antibiotic ointment. Please take all the antibiotics that you were prescribed until they are gone. Follow-up with your primary care physician as needed. Referrals: MARY KNOX, DO [Primary Care Provider] - Follow up as needed
--- NOTE | 2018-12-12 11:03 | ER Document Report ---
Doctor's Note Notes: I personally and independently obtained patient history and examined the patient in conjunction with the APC and agree with the assessment, treatment plan and disposition of the patient as recorded by the APC, and have reviewed the APC's note. HISTORY OF PRESENT ILLNESS: Patient is a 27-year-old female that presents to the emergency department for chief complaint of dog bites to both hands. Patient states that she was breaking up a fight between her 2 dogs, states that they are up-to-date with her rabies vaccination, she states that her dogs ended up biting her hands, once a black lab the other is accordingly, she currently rates her pain as a 6 out of 10 describes as a constant throbbing aching sensation in both hands and wrists. She reports that she does not recall her last tetanus vaccination. ROS: Constitutional: Negative for fever. Cardiovascular: Negative for chest pain. Respiratory: Negative for shortness of breath. Gastrointestinal: Negative for vomiting or abdominal pain Musculoskeletal: Positive for bilateral arm pain and wrist pain Skin: Negative for rash. Neurological: Negative for weakness or numbness. Other than noted above, the 12 point review of systems was reviewed with the patient and were negative, all pertinent findings are included in the HPI. PHYSICAL EXAMINATION: Vital signs reviewed, nursing noted reviewed. GENERAL: Well-appearing, well-nourished and in no acute distress. HEAD: Atraumatic, normocephalic. EYES: Eyes appear normal, conjunctiva are normal. ENT: nares patent, oropharynx clear without exudates. Moist mucous membranes. NECK: Normal range of motion, supple without lymphadenopathy LUNGS: Breath sounds clear to auscultation bilaterally and equal. No wheezes rales or rhonchi. HEART: Regular rate and rhythm without murmurs EXTREMITIES: Tenderness to palpation to the dorsal aspect and palmar aspect of the left hand, tendon function appears to be intact in both hands and all digits, with flexion and extension. There is tenderness to palpation over the right wrist as well, again without evidence of tendon injury. Small lacerations noted to both hands and wrists NEUROLOGICAL: No focal neurological deficits. Moves all extremities spontaneously Motor and sensory grossly intact on exam. PSYCH: Normal mood, normal affect. SKIN: Warm, Dry, normal turgor, dog bites noted to the wrist bilaterally, with several small lacerations noted, and slight oozing of blood. MEDICAL DECISION MAKING: Patient seen and examined, vital signs reviewed, patient is wounds are examined, irrigated and clean, the larger wound on the dorsal aspect of the left hand, had one suture placed, as well as the palmar wound, that was deep to subcutaneous tissues, these were gently approximated, patient will be started on Augmentin, and updated on her tetanus, patient was agreeable with follow-up plan, and advised signs of infection and reasons to return to the emergency department sooner. Please review detail APC documentation. *Note is created using voice recognition software and may contain spelling, syntax or grammatical errors. Hand X-Ray 12/11/18 18:56 IMPRESSION: NEGATIVE STUDY OF THE LEFT HAND. NO RADIOGRAPHIC EVIDENCE OF ACUTE INJURY. Wrist X-Ray 12/11/18 18:56 IMPRESSION: NEGATIVE STUDY OF THE RIGHT WRIST. NO RADIOGRAPHIC EVIDENCE OF ACUTE INJURY.
== END 2018-12-11 22:49 | disposition home or self-care (01) ==
LOC: ER 18:24
DX: S61.452A Open bite of left hand, initial encounter (principal); S61.451A Open bite of right hand, initial encounter; W54.0XXA Bitten by dog, initial encounter; Y92.009 Unspecified place in unspecified non-institutional (private) residence as the place of occurrence of the external cause; Z23 Encounter for immunization
CPT/HCPCS: 90471; 90715; 99283

== ENCOUNTER → 2019-10-31 | Outpatient (CLI) | payer BC ==
[2018-05-29 07:28] LABS: EPSTEIN BARR EARLY AG IGG AB <9.0 U/mL (0.0-8.9); EPSTEIN BARR VCA IGM AB <36.0 U/mL (0.0-35.9)
[2019-10-31 22:32] LABS: C DIFFICILE GDH NEGATIVE (NEGATIVE)
== END ==
LOC: LAB 21:32
PROVIDERS: ATTEND Nurse Practitioner Acute Care
DX: R19.7 Diarrhea, unspecified (principal)
CPT/HCPCS: 36415; 83918; 86256; 86663; 86664; 86665; 87045; 87177; 87205; 87324; 87449; 89055

== ENCOUNTER → 2020-07-25 | Outpatient (CLI) | payer BC ==
--- NOTE | 2020-07-25 19:47 | RADIOLOGY REPORT (SQ) ---
EXAM DESCRIPTION: FOOT LEFT COMPLETE IMAGES COMPLETED DATE/TIME: 07/25/2020 6:33 pm REASON FOR STUDY: INJURY LEFT FOOT S99.922D UNSPECIFIED INJURY OF LEFT FOOT, SUBSEQUENT ENCOUNT COMPARISON: None. NUMBER OF VIEWS: Three views. TECHNIQUE: AP, lateral and oblique radiographic images acquired of the left foot. LIMITATIONS: None. FINDINGS: MINERALIZATION: Normal. BONES: No acute fracture or dislocation. SOFT TISSUES: No soft tissue swelling. No radiopaque foreign body. IMPRESSION: No radiographic evidence for acute fracture at the left foot. TECHNICAL DOCUMENTATION: JOB ID: [id number] [employer]- All Rights Reserved Reading location - IP/workstation name: [email or web address]
== END ==
LOC: RAD 18:22
PROVIDERS: ATTEND Nurse Practitioner Family
DX: S99.922D Unspecified injury of left foot, subsequent encounter (principal); X58.XXXD Exposure to other specified factors, subsequent encounter